=== PATIENT | female | born 1985 | race Caucasian/White ===

== ENCOUNTER 2017-01-14 08:44 | Emergency (ER) | payer OTHER ==
[~2017-01-14] VITALS: Ht 162.6 cm; Wt 105.2 kg
[~2017-01-14 08:44] MED LIST: B12-METHYL1000 MC1 PO; GLIPIZIDE5 MG PO; METFORMIN HCL1000 MG PO; PRILOSEC40 MG PO; SERTRALINE100 M1 PO; TERBINAFINE250 MG PO; TRAZODONE50 M1 PO; WOMEN'S DAILY F1 TAB PO
[2017-01-14 09:53] LABS: BASOPHIL % 0.3 % (0-2); PLATELET COUNT 240 x10^3mcL (130-400); RED CELL DISTRIBUTION WIDTH 13.7 % (11.5-14.5)
[2017-01-14 10:07] LABS: CARBON DIOXIDE 30.8 mmol/L (21-32); CHLORIDE SERUM 101 mmol/L (98-107); CREATININE SERUM 0.7 mg/dL (0.6-1.0); GFR1 > 60 mL/min; GLUCOSE SERUM 298 mg/dL (74-106); POTASSIUM SERUM 4.4 mmol/L (3.5-5.1); SODIUM SERUM 137 mmol/L (136-145)
[2017-01-14 10:11] LABS: ALBUMIN 3.7 g/dL (3.4-5.0); ALKALINE PHOSPHATASE 84 U/L (46-116); ALT/SGPT 29 U/L (14-59); AMYLASE 26 U/L (25-115); AST/SGOT 15 U/L (15-37); BILIRUBIN TOTAL 0.9 mg/dL (0.20-1.00); LIPASE 171 IU/L (73-393); TOTAL PROTEIN, SERUM 7.4 g/dL (6.4-8.2)
[2017-01-14 10:32] LABS: AMPHETAMINE QUAL UR NONE DETECTED (NEG <=1000)
[2017-01-14 14:25] VITALS: BP 126/73
== END 2017-01-14 14:25 | disposition home or self-care (01) ==
LOC: ED 08:44
PROVIDERS: Emergency Medicine
DX: K29.70 Gastritis, unspecified, without bleeding (principal); E11.65 Type 2 diabetes mellitus with hyperglycemia; G51.0 Bell's palsy; Z79.84 Long term (current) use of oral hypoglycemic drugs
CPT/HCPCS: 83880; G0480; J2405; J3490; J7030